=== PATIENT | female | born 1940 ===

== ENCOUNTER → 2017-06-13 | Outpatient (CLI) | payer OTHER ==
[2017-06-13 15:57] LABS: ALANINE AMINOTRANSFERASE 16 IU/L (0-55); ALBUMIN 3.2 g/dL (3.5-5.0); ALBUMIN/GLOBULIN RATIO 0.9 (0.8-2.0); ALKALINE PHOSPHATASE 76 IU/L (40-150); ANION GAP 12.1 mmol/L (8-16); BLOOD UREA NITROGEN 10 mg/dL (7-26); BUN/CREATININE RATIO 15 (6-25); CALCIUM 8.6 mg/dL (8.4-10.2); CARBON DIOXIDE 27 mmol/L (22-29); CHLORIDE 98 mmol/L (98-107); CREATININE, SERUM 0.68 mg/dL (0.57-1.11); EST GLOMERULAR FILTRATION RATE > 60 ML/MIN (60-); GLUCOSE 86 mg/dL (74-118); POTASSIUM 4.1 mmol/L (3.5-5.1); SODIUM 133 mmol/L (136-145)
[2017-06-13 16:00] LABS: BASOPHILS # (AUTO) 0.1 (0.0-0.1); BASOPHILS % 0.7 % (0.0-1.0); EOSINOPHILS # (AUTO) 0.1 (0.0-0.4); EOSINOPHILS % 1.8 % (0.0-6.0); HEMATOCRIT 32.6 % (34.2-44.1); LYMPHOCYTES # (AUTO) 1.6 (1.0-3.2); LYMPHOCYTES % 20.6 % (18.0-39.1); MEAN CORPUSCULAR HEMOGLOBIN 31.9 pg (28-32); MEAN CORPUSCULAR HGB CONC 33.7 g/dL (31-35); MEAN CORPUSCULAR VOLUME 94.5 fL (81-99); MONOCYTES # (AUTO) 0.7 (0.2-0.8); MONOCYTES % 9.1 % (4.4-11.3); NEUTROPHILS # (AUTO) 5.1 (2.1-6.9); NEUTROPHILS % 67.3 % (38.7-80.0); PLATELET COUNT 391 x10e3/uL (140-360); RED BLOOD COUNT 3.45 x10e6/uL (3.6-5.1); RED CELL DISTRIBUTION WIDTH 13.8 % (11.7-14.4)
== END ==
LOC: NPA 12:00
PROVIDERS: ATTEND Internal Medicine
DX: Z02.89 Encounter for other administrative examinations (principal)
CPT/HCPCS: 36415; 80053; 85025